=== PATIENT | male | born 1935 | race Caucasian/White ===

== ENCOUNTER 2022-12-31 07:24 | Emergency (ER) | payer MEDICARE, SELFPAY ==
--- NOTE | ~2022-12-31 | CT_ITS ---
EXAMINATION: CT HEAD WITHOUT CONTRAST CLINICAL INFORMATION: Head trauma. On anticoagulant. COMPARISON: None available. TECHNIQUE: Contiguous axial imaging was performed from the skull base to vertex without intravenous administration of contrast. This CT examination was performed using dose optimization techniques as appropriate, variously including the following: *Automated exposure control *Adjustment of mA and/or kV according to patient size (this includes techniques or standardized protocols for targeted exams where dose is matched to indication/reason for exam; i.e. extremities or head) *Use of iterative reconstruction technique DLP: 927.82 mGy-cm FINDINGS: There is mild motion artifact present. Repeat scanning of this area was performed. No intracranial hemorrhage is identified. No abnormal extra-axial fluid collection is seen. No significant mass effect or midline structure shift is noted. 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 There are a few more prominent regions of diminished density within white matter without loss of uribe-white matter interface with the appearance of small infarcts involving the right frontal lobe and vascular watershed region within the posterior parietal occipital lobes on the right. There also appear to be lacunar infarcts within the anterior limbs of the internal capsules bilaterally and within the extreme capsule on the left. There are low-density region seen within both insular cortices consistent with ischemic change. Pterygoid plates intact. Visualized paranasal sinuses and mastoid air cells unremarkable. Calvarium intact. Scalp hematoma noted about the right parietal region. CT/CT head/brain wo IV con IMPRESSION: No acute intracranial pathology. Chronic ischemic changes as described.
--- NOTE | ~2022-12-31 | CT_ITS ---
EXAMINATION: CT CERVICAL SPINE WITHOUT CONTRAST CLINICAL INFORMATION: Head trauma COMPARISON: None available. TECHNIQUE: CT cervical spine with coronal and sagittal reconstructions. This CT examination was performed using dose optimization techniques as appropriate, variously including the following: *Automated exposure control *Adjustment of mA and/or kV according to patient size (this includes techniques or standardized protocols for targeted exams where dose is matched to indication/reason for exam; i.e. extremities or head) *Use of iterative reconstruction technique DLP: 341.23 mGy-cm FINDINGS: No abnormal prevertebral soft tissue swelling is seen. Paraspinal muscle fat planes are maintained. No acute cervical spine fracture is noted. There is severe disc space narrowing with articular irregularity and sclerosis seen with some spurring involving the anterior aspect of the C1-C2 articulation, C5-C6 disc space, and C6-C7 disc space level. There is mild spurring of the joints of Luschka at C5-C7 but without significant bony encroachment on the neural foramina are appreciated. There are degenerative facet changes C2-C4 and C7-T1 on the right on the left from C2 through T1. Mastoid air cells well aerated. Prominent vascular calcifications seen. No apical lung lesion identified. CT/CT cervical spine wo IV con IMPRESSION: Cervical spondylosis as described without evidence of acute cervical spine fracture. Fleischner guidelines were followed.
[2022-12-31 07:31] VITALS: BP 131/80; BP 137/87; PULSE 103; PULSE 99; RESP 16; TEMP 36.6; O2SAT 96; O2SAT 97; BMI 27.4
[2022-12-31 07:37] VITALS: BP 131/80; PULSE 99; RESP 16; O2SAT 96
--- NOTE | 2022-12-31 08:00 | ED_ITS ---
HPI - Fall General Chief Complaint: Fall Stated Complaint: FALL Time Seen by Provider: 12/31/22 07:52 Source: patient and RN notes reviewed Mode of arrival: ambulatory Limitations: no limitations History of Present Illness HPI Narrative: This is a 87-year-old male, with a past medical history of AFib on Eliquis, who presents to the emergency department status post fall which occurred this morning. Patient reports that he was getting out of bed bending forward Trying to put on her slippers when suddenly he fell forward. He states the next thing that he remembers is that he woke up on the for with blood on his face, reporting he believes that he struck his head on a nightstand. Patient reports that he has mild pain around his laceration. Patient otherwise denies any blurred vision, visual changes, nausea, vomiting, or diarrhea. No weakness, numbness, or tingling. No other complaints or concerns at this time. MD complaint: fall Onset (ago): hour(s) Fall from: out of bed Fall witnessed: no Place fall occurred: home Loss of consciousness: unsure Prolonged down time: unclear Symptoms prior to fall: none Location of injury: head Related Data Allergies Allergy/AdvReac Type Severity Reaction Status Date / Time acetaminophen [Percocet] Allergy Unknown Verified 02/08/19 00:00 oxycodone [Percocet] Allergy Unknown Verified 02/08/19 00:00 Review of Systems Review of Systems: Constitutional: No Weight loss, No Fever, No Chills, No Night Sweats, No Fatigue, No Malaise ENT/Mouth: No Hearing loss, No Ear Pain, No Nasal Congestion, No Sinus Pain, No Hoarseness, No sore throat, No Rhinorrhea, No Swallowing Difficulty Eyes: No Eye Pain, No Swelling, No Redness, No Foreign Body, No Discharge, No Vision Changes Cardiovascular: No Chest Pain, No SOB, No Dyspnea on Exertion, No Orthopnea, No Edema, No Palpitations Respiratory: No Cough, No Sputum, No Wheezing, No Smoke Exposure, No Dyspnea Gastrointestinal: No Nausea, No Vomiting, No Diarrhea, No Constipation, No Abdominal pain, No Hematochezia, No Melena Genitourinary: No irregular bleeding, No Dysuria, No Urinary Frequency, No Hematuria, No Urinary Incontinence/retention, No Urgency, No Flank Pain, No Urinary Flow Changes, No Hesitancy Musculoskeletal: No joint pain, No Myalgias, No Joint Swelling Skin: No Skin Lesions, No rash Neuro: No Weakness, No Numbness, No Paresthesias, No Loss of Consciousness, No Dizziness, No Headache Psych: No Anxiety/Panic, No Depression, No SI/HI/AH/VH, No Social Issues, Heme/Lymph: No Bruising, No Bleeding,No Lymphadenopathy Endocrine: No Polyuria, No Polydipsia, No Temperature Intolerance Yes all other systems are reviewed and are negative Constitutional: Constitutional: Reports as per [facility] Social History Social History Smoked in Last 30 Days: No Use of substances other than those prescribed or required for medical reasons: No Advance Directives: No Physical Exam Vital Signs: Vital Signs: Last Vital Signs Temp 97.6 F 12/31/22 11:19 Pulse 99 12/31/22 11:19 Resp 18 12/31/22 11:19 BP 125/85 12/31/22 11:19 Pulse Ox 95 12/31/22 11:19 O2 Del Method Room Air 12/31/22 11:19 BMI result Body Mass Index 27.4 Const: General: cooperative, comfortable and no acute distress Orientation/consciousness: patient oriented x3 Limitations: no limitations HEENT: Other: No hemotympanum Head: Yes normal to inspection, Yes normocephalic and Yes atraumatic Ears: hearing grossly normal bilaterally General nose exam: Normal external nose present Face and sinus: Yes normal facial exam Mouth: Normal oral and palatal mucosa present, oropharynx normal and moist mucous membranes Throat: Yes posterior oropharynx normal Eyes: General: appearance normal, both eyes and all related structures Eyelids: Yes eyelids normal Conjunctivae: conjunctivae normal Sclerae: sclerae normal Pupils: Equal, round and reactive pupils present EOM: EOMs intact bilaterally Neck: Neck: Yes normal visual inspection, Yes full ROM and Yes no lymphadenopathy Lymphatic: no lymphadenopathy noted Chest: Chest palpation & inspection: normal inspection of the chest Resp: Effort & Inspection: normal respiratory effort and able to speak in complete sentences Auscultation: clear to auscultation bilaterally, no crackles, no rales, no rhonchi and no wheezes Cardio: Rate: regular rate Rhythm: regular rhythm Heart sounds: S1 normal heart sound present and S2 normal heart sound present GI: Inspection: Yes normal to inspection Back/Spine/Pelvis: Other: No cervical spine tenderness to palpation, full range of motion of the neck Skin: Other: Patient with v-shaped partial-thickness laceration to the right parietal scalp. No active bleeding. General skin exam: no rashes or lesions noted Trauma: no lacerations or abrasions Wounds: no wounds Neuro: General: patient oriented x3, moves all extremities and CN's II-XI intact bilaterally Cranial nerves: Yes Equal, round and reactive pupils present Extrem: General: Yes normal to inspection Right upper extremity: normal to inspection Left upper extremity: normal to inspection Right lower extremity: normal to inspection Left lower extremity: normal to inspection Course Reevaluation(s) Reevaluation #1: Head and neck CT unremarkable for any acute findings. Cervical collar removed. Scalp laceration was cleansed with saline and Betadine, there is a 4 cm v-shaped laceration on the right side of his scalp, requiring stable placement. Six talita placed in wound, good wound approximation, patient tolerated procedure well without any complications or concerns, see procedure note Patient remained stable throughout his course of his emergency department stay. Neurologically intact. Patient given precaution instructions on when to return. He has good understanding of this and agrees with plan. Educated on good wound care. Patient stable for discharge. Time: 11:20 Medications Administered Discontinued Medications Generic Name Dose Route Start Last Admin Trade Name Sherry PRN Reason Stop Dose Admin Acetaminophen 975 mg 12/31/22 09:26 12/31/22 09:39 Acetaminophen 325 Mg Tablet PO 12/31/22 09:27 975 mg ONCE ONE Administration Procedures Laceration Laceration 1: Site: scalp Side (If applicable): right Size (cm): 4 Description: linear (V-shaped) Depth: simple, single layer Pre-repair: wound explored, irrigated extensively and deep structures intact Skin layer closed with: other ([place]) Medical Decision Making Medical Decision Making MDM Narrative: This is an 87-year-old male, with a past medical history of atrial fibrillation on Eliquis, who presents to the emergency department status post fall which occurred today. Patient was bending over from his bed when suddenly he fell forward. The next thing that he knew he realized he was on the floor covered in blood. He was able to call for help by banging an object on the floor. He states he was on the floor for 10-15 minutes after loss of consciousness. Pat ruth is fully neurologically intact. Upon arrival patient is in cervical collar. Right side of face of blood. Plan: CT head and CT head ordered Differential Diagnosis Differential Diagnoses: The differential diagnosis associated with the presentation includes Subdural hematoma, ICH, close head injury, laceration Admission/Observation Consideration of admission/observation: Escalation of care including admission/observation considered Lab Data MDM Lab Attestation statement: I reviewed the patient's lab results. Radiology Impression Discussion of test interpretation with radiology: I have reviewed the radiologist's reading. Radiologist Impression: [address] [address] [address] Scan Report Signed Patient: Paul Castro MR#: [id number] : 1935 Acct:[id number] Age/Sex: 87 / M ADM Date: 12/31/22 Loc: HO.ED Attending Dr: Ordering Physician: Marli Kelly Date of Service: 12/31/22 Procedure(s): CT cervical spine wo IV con Accession Number(s): [id number] cc: Marli Kelly~ EXAMINATION: CT CERVICAL SPINE WITHOUT CONTRAST CLINICAL INFORMATION: Head trauma? COMPARISON: None available. TECHNIQUE: CT cervical spine with coronal and sagittal reconstructions.? This CT examination was performed using dose optimization techniques as appropriate, variously including the following: *Automated exposure control *Adjustment of mA and/or kV according to patient size (this includes techniques or standardized protocols for targeted exams where dose is matched to indication/reason for exam; i.e. extremities or head) *Use of iterative reconstruction technique DLP: 341.23 mGy-cm FINDINGS: No abnormal prevertebral soft tissue swelling is seen. Paraspinal muscle fat planes are maintained. No acute cervical spine fracture is noted. There is severe disc space narrowing with articular irregularity and sclerosis seen with some spurring involving the anterior aspect of the C1-C2 articulation, C5-C6 disc space, and C6-C7 disc space level. There is mild spurring of the joints of Luschka at C5-C7 but without significant bony encroachment on the neural foramina are appreciated. There are degenerative facet changes C2-C4 and C7-T1 on the right on the left from C2 through T1. Mastoid air cells well aerated. Prominent vascular calcifications seen. No apical lung lesion identified. CT/CT cervical spine wo IV con IMPRESSION: Cervical spondylosis as described without evidence of acute cervical spine fracture.? ? Fleischner guidelines were followed. Dictated By: Mango Magana MD External Record Review External record reviewed: Inpatient record, Office record, Outpatient record, Prior outpatient labs, Prior outpatient radiology, Primary care record and Outside ED record Discharge Plan Discharge Clinical Impression: Fall, Laceration of head, Head injury, acute Patient Disposition: Home, Self-Care Instructions: Fall Prevention for Older Adults (ED), Staple Care (ED), Fall Prevention (ED) Additional Instructions: Your head CT and neck CT was reviewed, no acute findings were found today. You cut your scalp which required 6 talita. Please have these removed in 7-10 days, he may return or follow-up with your primary care physician for this. Tylenol and ice packs to this area will help with pain. Mental and physical rest will help you heal faster, avoid prolonged screen time. Watch for any signs of wound infection including fevers, chills, redness, or swelling around the laceration. Any new or worsening symptoms occur including increased decreased confusion, headaches, weakness, numbness, tingling please return for re-evaluation. Interventions: ED Discharge Assessment Last Done: 12/31/22 12:30 Discharge Date/Time: 12/31/22 12:31
[2022-12-31] MEDS: Acetaminophen 325 MG TABLET 975 MG PO (09:39)
[2022-12-31 11:19] VITALS: BP 125/85; PULSE 99; RESP 18; TEMP 36.4; O2SAT 95
== END 2022-12-31 12:31 | disposition home or self-care (01) ==
PROVIDERS: Emergency Provider Emergency Medicine; PCP Internal Medicine
DX: S01.01XA Laceration without foreign body of scalp, initial encounter (principal); S09.90XA Unspecified injury of head, initial encounter; W06.XXXA Fall from bed, initial encounter; Y93.89 Activity, other specified; Y92.013 Bedroom of single-family (private) house as the place of occurrence of the external cause; Y99.9 Unspecified external cause status
CPT/HCPCS: 12002; 70450; 72125; 99284

== ENCOUNTER 2023-01-05 17:21 | Emergency (ER) | payer MEDICARE, SELFPAY ==
[2023-01-05 17:28] VITALS: BP 118/48; PULSE 91; RESP 18; TEMP 36.6; O2SAT 96; BMI 27.4
--- NOTE | 2023-01-05 18:23 | ED.WOUNDLAC ---
HPI - Wound/Laceration General Chief Complaint: Wound/Laceration Stated Complaint: Bleeding below talita Time Seen by Provider: 01/05/23 18:23 Source: patient Mode of arrival: ambulatory Limitations: no limitations History of Present Illness HPI narrative: Patient is status post head laceration 12/31/2022 talita were placed patient on Eliquis comes here as wound still oozing. Related Data Allergies Allergy/AdvReac Type Severity Reaction Status Date / Time acetaminophen [Percocet] Allergy Unknown Unknown Verified 01/05/23 17:28 oxycodone [Percocet] Allergy Unknown Unknown Verified 01/05/23 17:28 Review of Systems Review of Systems: Yes all other systems are reviewed and are negative [facility] Social History Social History Advance Directives: No Advance Directives Information Provided: No Physical Exam Vital Signs: Vital Signs: Last Vital Signs Temp 97.8 F 01/05/23 17:28 Pulse 91 01/05/23 17:28 Resp 18 01/05/23 17:28 BP 118/48 L 01/05/23 17:28 Pulse Ox 96 01/05/23 17:28 O2 Del Method Room Air 01/05/23 17:28 BMI result Body Mass Index 27.4 HEENT: Head images: 1. Right parietal scalp laceration about 4 cm long stapled lateral part of the laceration not stapled well and is oozing minor Medical Decision Making Medical Decision Making MDM Narrative: Patient losing minor amount of blood from the lateral edge of the wound scalp wound which was not stapled well f4 more talita were applied and 2 talita were removed bleeding. Discharge Plan Discharge Clinical Impression: Laceration Patient Disposition: Home, Self-Care Instructions: Head Laceration (ED) Additional Instructions: Local care as advised Flora removal in 1 week
== END 2023-01-05 19:45 | disposition home or self-care (01) ==
PROVIDERS: Emergency Provider Internal Medicine; PCP Internal Medicine
DX: S01.01XD Laceration without foreign body of scalp, subsequent encounter (principal); X58.XXXD Exposure to other specified factors, subsequent encounter; Z79.01 Long term (current) use of anticoagulants
CPT/HCPCS: 12001; 99282; 99283; 99284

== ENCOUNTER 2023-01-13 11:12 | Emergency (ER) | payer MEDICARE, SELFPAY ==
--- NOTE | 2023-01-13 11:18 | ED.GENADULT ---
HPI - General Adult General Chief complaint: Skin/Abscess/Foreign Body Stated complaint: needs talita removed Time Seen by Provider: 01/13/23 11:18 Source: patient Mode of arrival: ambulatory Limitations: no limitations History of Present Illness HPI narrative: ?87-year-old male, with a past medical history of AFib on Eliquis here for staple removal from right head (9 talita) from fall /. No complaints Related Data Allergies Allergy/AdvReac Type Severity Reaction Status Date / Time acetaminophen [Percocet] Allergy Unknown Unknown Verified 01/05/23 17:28 oxycodone [Percocet] Allergy Unknown Unknown Verified 01/05/23 17:28 Review of Systems Review of Systems: Yes all other systems are reviewed and are negative Constitutional: Constitutional: Reports no additional constitutional complaints, Denies body ache(s), Denies chills, Denies fever(s), Denies headache(s) and Denies weakness Eyes: Eyes: Reports no additional eye complaints and Denies change in vision ENT: Reports system reviewed and no additional complaints, except as documented, Denies dizziness, Denies headache(s), Denies nasal congestion, Denies nasal discharge and Denies neck pain Cardiovascular: Cardiovascular: Reports no additional cardiovascular complaints, Denies chest pain, Denies leg edema and Denies dyspnea Respiratory: Respiratory: Reports no additional respiratory complaints, Denies cough and Denies dyspnea Gastrointestinal: Gastrointestinal: Reports no additional gastrointestinal complaints, Denies abdominal pain, Denies diarrhea, Denies nausea and Denies vomiting Genitourinary: Genitourinary: Denies urinary incontinence Musculoskeletal: Musculoskeletal: Reports no additional musculoskeletal complaints, Denies back pain, Denies arthralgias, Denies joint swelling, Denies neck pain, Denies numbness and Denies tingling Integumentary/Breasts: Skin/Breast: Reports system reviewed and no additional complaints, except as docu and Denies rash Neurologic: Reports system reviewed and no additional complaints, except as documented, Denies dizziness, Denies headache(s), Denies numbness, Denies tingling and Denies weakness PMFSH Past Medical History Attestation statement: The following information was validated with the patient. Source: old records reviewed and nursing notes reviewed Social History Social History Advance Directives: No Advance Directives Information Provided: Yes Physical Exam ED Vital Signs: Vital Signs - 24 hr 01/13/23 11:19 Temperature 97.9 F Pulse Rate 110 H Respiratory Rate 20 Blood Pressure 118/69 Pulse Oximetry 93 Oxygen Delivery Method Room Air BMI result Body Mass Index 29.5 Const General: cooperative, healthy appearing, comfortable and no acute distress Orientation/consciousness: patient oriented x3 Limitations: no limitations HENMT Head: Yes normal to inspection Head images: 1. 9 talita present Eyes General: appearance normal, both eyes and all related structures Neck Neck: Yes normal visual inspection Chest Chest palpation & inspection: normal inspection of the chest Resp Effort & Inspection: normal respiratory effort Cardio Peripheral pulses: Peripheral pulses 2+ throughout Skin General skin exam: no rashes or lesions noted Neuro General: patient oriented x3 and moves all extremities Cognition (Neuro): normal cognition Gait exam (Neuro): Normal gait present Procedures Procedure Narrative Procedure Narrative: 9 talita removed from right head Medical Decision Making Medical Decision Making MDM Narrative: 87 yo male here for staple removal from right head placed on 12/31 with no complaints No complaints, healing well Differential Diagnosis Differential Diagnoses: The differential diagnosis associated with the presentation includes Discharge Plan Discharge Clinical Impression: Encounter for removal of talita Patient Disposition: Home, Self-Care Instructions: Stitches Removal (ED) Additional Instructions: Wash the hair gently with soap and water Do not pick or scrub at the scab Referrals: Physician,Tori J [Primary Care Provider] - Interventions: ED Discharge Assessment Last Done: 01/13/23 11:32 Discharge Date/Time: 01/13/23 11:32
[2023-01-13 11:19] VITALS: BP 118/69; PULSE 110; RESP 20; TEMP 36.6; O2SAT 93; BMI 29.5
== END 2023-01-13 11:32 | disposition home or self-care (01) ==
PROVIDERS: Emergency Provider Emergency Medicine
DX: Z48.02 Encounter for removal of sutures (principal)
CPT/HCPCS: 99282